=== PATIENT | male | born 1990 | race Caucasian/White ===

== ENCOUNTER 2023-05-11 10:46 | Emergency (ER) | payer BC, OTHER ==
[2023-05-11 11:09] VITALS: BP 130/60; PULSE 83; RESP 16; TEMP 97.7; BMI 26.6
== END 2023-05-11 13:21 | disposition home or self-care (01) ==
LOC: JER 10:46 → JERFT 10:46
DX: R05.9 Cough, unspecified (principal); Z20.822 Contact with and (suspected) exposure to COVID-19
CPT/HCPCS: 0241U-QW; 71046-TC-FY; 99284-25

== ENCOUNTER 2023-08-15 15:53 | Emergency (ER) | payer OTHER ==
[2023-08-15 16:13] VITALS: BP 132/78; PULSE 82; RESP 18; TEMP 98.5; BMI 33.3
== END 2023-08-15 17:23 | disposition home or self-care (01) ==
LOC: JERFT 15:53
DX: M25.522 Pain in left elbow (principal); S59.902A Unspecified injury of left elbow, initial encounter; W19.XXXA Unspecified fall, initial encounter
CPT/HCPCS: 73070-TC-LT-FY; 99283-25